=== PATIENT | male | born 1995 | race Caucasian/White ===

== ENCOUNTER 2021-11-23 14:15 | Emergency (ER) | payer OTHER ==
[~2021-11-23] VITALS: Ht 170.2 cm; Wt 93.4 kg
[2021-11-23] MEDS ORDERED: HYDRA25 (14:56)
== END 2021-11-23 15:05 | disposition home or self-care (01) ==
LOC: ER 14:15
DX: F22 Delusional disorders (principal); F17.200 Nicotine dependence, unspecified, uncomplicated; Z79.899 Other long term (current) drug therapy
CPT/HCPCS: 99284